=== PATIENT | female | born 1985 | race Caucasian/White ===

== ENCOUNTER 2017-03-08 05:47 | Inpatient (IN) | payer OTHER ==
[~2017-03-08] VITALS: Ht 154.9 cm; Wt 70.8 kg
[2017-03-08] VITALS (19 sets, daily range): BP systolic 93–119; BP diastolic 58–80
[2017-03-08] MEDS ORDERED: HEPARIN SO5000 UNIT3 SC (06:26)
[2017-03-08] MEDS ORDERED: PRENATAL TABLE1 EAC3 PO (06:27)
[2017-03-08] MEDS ORDERED: FOLIC ACID1 MG PO (06:27)
[2017-03-08 06:58] LABS: EOSINOPHIL (%) 0 % (0-5); HEMATOCRIT 40.9 % (36.0-46.0); IMMATURE GRANULOCYTE COUNT 0.1 K/uL; INSTRUMENT ABS NEUTROPHIL CT 7.9 K/uL; LYMPHOCYTE COUNT 1.2 K/uL (1.0-2.8); MCH 29.4 PG (29.0-34.0); MCHC 33.3 G/DL (30.0-36.0); MCV 88.3 FL (83-99); MEAN PLAT.VOLUME 11.6 uM^3 (9.5-12.4); MONOCYTE (%) 6.9 % (3-12); MONOCYTE COUNT 0.7 K/uL (0-0.8); NEUTROPHIL (%) 80.2 % (45-76); NEUTROPHIL COUNT 7.9 K/uL (1.8-6.4); PLATELET COUNT 165 K/uL (156-360); RBC DIS.WIDTH-CV 12.7 % (11.8-14.6); RBC DIS.WIDTH-SD 41.1 % (39-53); RED BLOOD COUNT 4.63 M/uL (3.80-5.20); WHITE BLOOD COUNT 9.9 K/uL (4.1-10.2)
[2017-03-08] MEDS ORDERED: MOTRIN800 MG PO (15:31)
[2017-03-08] MEDS ORDERED: LOVENOX40 MG/0.4 SC (15:31)
[2017-03-09 07:45] VITALS: BP 107/67
[2017-03-09 14:43] VITALS: BP 106/66
[2017-03-09 23:00] VITALS: BP 87/49
[2017-03-10 07:47] VITALS: BP 99/65
== END 2017-03-10 13:20 | disposition home or self-care (01) | DRG 775 ==
LOC: LDRP-OP 05:47 → 2WEST 05:51 → LDRP-OP 04-07 12:49
PROVIDERS: Obstetrics & Gynecology
PROC: 10E0XZZ Delivery of Products of Conception, External Approach (ICD-10-PCS; principal; 2017-03-08)
PROC: 00HU33Z Insertion of Infusion Device into Spinal Canal, Percutaneous Approach (ICD-10-PCS; principal; 2017-03-08)
PROC: 0HQ9XZZ Repair Perineum Skin, External Approach (ICD-10-PCS; principal; 2017-03-08)
PROC: 3E0R3CZ (ICD-10-PCS; principal; 2017-03-08)
PROC: 10907ZC Drainage of Amniotic Fluid, Therapeutic from Products of Conception, Via Natural or Artificial Opening (ICD-10-PCS; principal; 2017-03-08)
DX: O70.0 First degree perineal laceration during delivery (principal); O63.1 Prolonged second stage (of labor); O99.12 Other diseases of the blood and blood-forming organs and certain disorders involving the immune mechanism complicating childbirth; D68.59 Other primary thrombophilia; Z3A.40 40 weeks gestation of pregnancy; Z37.0 Single live birth; O99.353 Diseases of the nervous system complicating pregnancy, third trimester; G43.909 Migraine, unspecified, not intractable, without status migrainosus; O99.344 Other mental disorders complicating childbirth; F41.9 Anxiety disorder, unspecified; L30.9 Dermatitis, unspecified
CPT/HCPCS: 85025; C1755; J1650; J3010; J7120

== ENCOUNTER → 2017-03-12 | Outpatient (CLI) | payer OTHER ==
[~2017-03-12] MED LIST: FOLIC ACID1 MG PO; HEPARIN SO5000 UNIT3 SC; LOVENOX40 MG/0.4 SC; MOTRIN800 MG PO; PRENATAL TABLE1 EAC3 PO
== END | disposition home or self-care (01) ==
LOC: LAC 12:10
DX: O92.13 Cracked nipple associated with lactation (principal)
CPT/HCPCS: G0463

== ENCOUNTER 2017-03-14 19:08 | Emergency (ER) | payer OTHER ==
[~2017-03-14] VITALS: Ht 157.5 cm; Wt 64.5 kg
[2017-03-14 20:07] LABS: CHLORIDE 106 mEq/L (99-109); POTASSIUM 3.8 mEq/L (3.7-5.4); SODIUM 138 mEq/L (136-147)
[2017-03-14 20:08] LABS: HEMATOCRIT 40.8 % (36.0-46.0); MCH 29.7 PG (29.0-34.0); MCHC 33.6 G/DL (30.0-36.0); MCV 88.5 FL (83-99); MEAN PLAT.VOLUME 10.5 uM^3 (9.5-12.4); PROTHROMBIN TIME 10.1 (9.2-11.2); PTT 29.5 (25-32); RBC DIS.WIDTH-CV 12.2 % (11.8-14.6); RBC DIS.WIDTH-SD 39.2 % (39-53); RED BLOOD COUNT 4.61 M/uL (3.80-5.20); WHITE BLOOD COUNT 7.2 K/uL (4.1-10.2)
[2017-03-14 20:09] LABS: PLATELET COUNT 251 K/uL (156-360)
[2017-03-14 20:10] LABS: GLUCOSE 111 mg/dL (70-99)
[2017-03-14 20:11] LABS: ANION GAP 8 MEQ/L (2-14)
[2017-03-14 20:12] LABS: TOTAL BILIRUBIN 0.2 mg/dL (0.0-1.0)
[2017-03-14 20:13] LABS: ALKALINE PHOSPHATASE 67 IU/L (3-129); GFR ESTIMATE (CALCULATED) > 59 mL/min/
[2017-03-14 20:14] LABS: UREA NITROGEN (BUN) 20 mg/dL (9-23)
[2017-03-14 20:30] LABS: ADD MIUA? YES; BILIRUBIN NEGATIVE; BLOOD LARGE; COLOR YELLOW ((YELLOW)); GLUCOSE (STRIP) NEGATIVE; KETONES NEGATIVE; LEUKOCYTES LARGE; NITRITE NEGATIVE; PROTEIN (STRIP) NEGATIVE; SPECIFIC GRAVITY 1.008 (1.000-1.030); UROBILINOGEN 0.2 MG/DL (0.2-1.0)
[2017-03-14 20:33] LABS: BACTERIA RARE /HPF; EPITHELIAL CELLS RARE /HPF; MUCUS NONE SEEN /LPF; RED BLOOD CELLS 20-30 /HPF (0-5); UCUL ADDED? NO; WHITE BLOOD CELLS 40-50 /HPF (0-5)
[2017-03-14 21:46] VITALS: BP 113/77
== END 2017-03-14 21:46 | disposition home or self-care (01) ==
LOC: EME 19:08 → RME 19:08
PROVIDERS: Physician Assistant
DX: O72.1 Other immediate postpartum hemorrhage (principal); O99.13 Other diseases of the blood and blood-forming organs and certain disorders involving the immune mechanism complicating the puerperium; D68.59 Other primary thrombophilia; Z79.01 Long term (current) use of anticoagulants
CPT/HCPCS: 76856; 80053; 81003; 85027; 85610; 85730; 86900; 86901; 99281; 99284